=== PATIENT | female | born 1945 | race Hispanic/Latino ===

== ENCOUNTER → 2021-03-03 | Outpatient (CLI) | payer OTHER, MEDICARE | END | disposition home or self-care (01) | LOC: RAH 08:29 | PROVIDERS: ATTEND Internal Medicine | DX: R94.31 Abnormal electrocardiogram [ECG] [EKG] (principal) | CPT/HCPCS: 93306; 93356 ==

== ENCOUNTER → 2021-08-21 | Outpatient (CLI) | payer OTHER, MEDICARE | END | disposition home or self-care (01) | LOC: RAH 09:48 | PROVIDERS: ATTEND Family Medicine | DX: Z12.31 Encounter for screening mammogram for malignant neoplasm of breast (principal) | CPT/HCPCS: 77067 ==

== ENCOUNTER 2021-10-30 17:16 | Emergency (ER) | payer OTHER, MEDICARE ==
[~2021-10-30] VITALS: Ht 152.4 cm; Wt 69.4 kg
[2021-10-30 17:48] LABS: APPEARANCE,URINE Clear (CLEAR); BILIRUBIN,URINE Negative (NEGATIVE); COLOR,URINE Yellow (YELLOW); GLUCOSE, URINE (UA) Negative (NEGATIVE); KETONES,URINE Trace mg/dL (NEGATIVE); LEUKOCYTE ESTERASE ,URINE Trace (NEGATIVE); NITRATE,URINE Negative (NEGATIVE); OCCULT BLOOD,URINE Negative (NEGATIVE); PROTEIN,URINE Trace mg/dL (NEGATIVE)
[2021-10-30 17:54] LABS: RBC,URINE 0-1 /HPF (0-1)
[2021-10-30 17:54] LABS: BASOPHILS % (AUTO) 0.2 % (0.0-5.0); EOSINOPHILS % (AUTO) 0.3 % (0.0-8.0); HEMATOCRIT 35.7 % (36-48); LYMPHOCYTES % (AUTO) 9.5 % (21.0-51.0); MEAN CORPUSCULAR HEMOGLOBIN 27.4 pg (27.0-33.0); MEAN CORPUSCULAR HGB CONC 30.8 g/dL (32.0-36.0); MONOCYTES % (AUTO) 6.3 % (3.0-13.0); NEUTROPHILS % (AUTO) 83.4 % (40.0-77.0); PLATELET COUNT (AUTO) 231 K/uL (130-400); RED BLOOD CELL COUNT(AUTO) 4.01 MIL/uL (4.00-5.50); RED CELL DISTRIBUTION WIDTH 12.5 % (11.0-15.5); WHITE BLOOD COUNT (AUTO) 11.9 K/uL (4.8-10.8)
[2021-10-30 17:55] LABS: AMORPHOUS SEDIMENT,UR Rare /LPF (None Seen); BACTERIA,URINE Few /HPF (None Seen); SQUAMOUS EPITHELIAL CELL,UR Rare /HPF (0-2)
[2021-10-30 18:06] LABS: CREATININE 0.9 mg/dL (0.5-1.5); POTASSIUM 3.6 mmol/L (3.5-5.1)
[2021-10-30 18:13] LABS: ALBUMIN 3.5 g/dL (3.5-5.0); BILIRUBIN,TOTAL 0.2 mg/dL (0.2-1.0)
[2021-10-30] MEDS ORDERED: LIDOCAINE HCL 2% VISCOUS 15 ML UDCUP PO ONE (18:30)
[2021-10-30] MEDS ORDERED: MAG/ALUM/SIMETH 30 ML UDCUP PO ONE (18:30)
[2021-10-30] MEDS ORDERED: DICYCLOMINE HCL 10 MG/5 ML ML PO ONE (18:30)
[2021-10-30] MEDS ORDERED: ONDANSETRON 4MG INJ IVP ONE (18:30)
[2021-10-30] MEDS ORDERED: 0.9%NACL 1000ML 1,000 ML IV SCH (18:30)
[2021-10-30] MEDS ORDERED: FAMOTIDINE 20MG VIAL IV ONE (18:30)
[2021-10-30] MEDS ORDERED: LEVO500T90 PO (18:48)
[2021-10-30] MEDS ORDERED: DICY20TA2 PO (18:48)
[2021-10-30] MEDS ORDERED: ONDA4TAB10 PO (18:48)
[2021-10-30] MEDS ORDERED: METR375C2 PO (18:48)
[2021-10-30] MEDS ORDERED: METRONIDAZOLE 500 MG TABLET ONE (19:27)
[2021-10-30] MEDS ORDERED: LEVOFLOXACIN 500 MG TABLET ONE (19:27)
[2021-10-30] MEDS ORDERED: MORPHINE 2 MG SYG ONE (19:28)
[2021-10-30 19:30] VITALS: BP 140/44
[2021-10-30] MEDS ORDERED: METRONIDAZOLE 500 MG TABLET PO SCH (20:00)
[2021-10-30] MEDS ORDERED: LEVOFLOXACIN 500 MG TABLET PO SCH (20:00)
[2021-10-30] MEDS ORDERED: MORPHINE 2 MG SYG IVP ONE (20:00)
== END 2021-10-30 20:52 | disposition home or self-care (01) ==
LOC: EDH 17:16
DX: K52.9 Noninfective gastroenteritis and colitis, unspecified (principal); I10 Essential (primary) hypertension; M19.90 Unspecified osteoarthritis, unspecified site
CPT/HCPCS: 36415; 71045; 74176; 80053; 81001; 83690; 84484; 85025; 93005; 96374; 96375 ×2; 99285; J2405; J3490

== ENCOUNTER → 2023-02-22 | Outpatient (CLI) | payer OTHER, MEDICARE ==
[~2023-02-22] MED LIST: DICY20TA2 PO; GADOTERATE MEGLUMINE 10 MMOL/20 ML VIAL IV ONE; LEVO-70 PO; METR375C2 PO; ONDA4TAB10 PO
== END | disposition home or self-care (01) ==
LOC: RAH 08:18
PROVIDERS: ATTEND Internal Medicine
DX: S46.011A Strain of muscle(s) and tendon(s) of the rotator cuff of right shoulder, initial encounter (principal); M25.511 Pain in right shoulder; M25.811 Other specified joint disorders, right shoulder; X58.XXXA Exposure to other specified factors, initial encounter; Y93.89 Activity, other specified; Y92.89 Other specified places as the place of occurrence of the external cause; Y99.8 Other external cause status
CPT/HCPCS: 73223; A9575